=== PATIENT | female | born 1995 | race Caucasian/White ===

== ENCOUNTER 2023-03-14 09:48 | Outpatient (CLI) | payer OTHER, SELFPAY ==
[2023-03-14 11:27] LABS: Cholesterol 230 mg/dL (0-200); HDL Direct 58 mg/dL; Triglycerides 74 mg/dL (<150)
[2023-03-14 11:37] LABS: LDL Cholesterol Direct 144 mg/dL
[2023-03-14 11:41] LABS: Iron 102 ug/dL (37-170)
[2023-03-14 11:50] LABS: Percent Iron Saturation 23 % (20-50)
[2023-03-17 14:22] LABS: DHEA-Sulfate 122 mcg/dL (18-391); Insulin Level Total 4.6 uIU/mL (<=19.6)
[2023-03-18 04:49] LABS: Prolactin 7.4 ng/mL (***)
[2023-03-19 07:30] LABS: Testosterone Free 1.1 pg/mL (0.1-6.4); Testosterone Total 18 ng/dL (2-45)
[2023-03-28 07:43] LABS: Reference Lab Test Result 5.5
== END 2023-03-14 09:49 | disposition home or self-care (01) ==
PROVIDERS: Visit Provider Obstetrics & Gynecology
DX: N93.9 Abnormal uterine and vaginal bleeding, unspecified (principal); Z87.42 Personal history of other diseases of the female genital tract
CPT/HCPCS: 36415; 80061; 82627; 82728; 83036; 83498; 83525; 83540; 83550; 84146; 84402; 84403; 84443

== ENCOUNTER 2024-07-12 15:56 | Outpatient (CLI) | payer OTHER, SELFPAY | END 2024-07-12 15:57 | disposition home or self-care (01) | LOC: ANHLAB 15:58 | PROVIDERS: Visit Provider Obstetrics & Gynecology | DX: O26.851 Spotting complicating pregnancy, first trimester (principal); Z3A.00 Weeks of gestation of pregnancy not specified | CPT/HCPCS: 36415; 84702; 86850; 86900; 86901 ==

== ENCOUNTER 2024-07-14 10:59 | Outpatient (CLI) | payer OTHER, SELFPAY ==
--- NOTE | ~2024-07-14 | US_ITS ---
US OB transvaginal DATE: 07/14/2024 11:29 INDICATION: Vaginal spotting. Evaluate for viability TECHNIQUE: Transvaginal imaging COMPARISON: None FINDINGS: The uterus measures 7.0 cm sagittal, 3.5 cm AP and 3.7 cm transverse dimension. A possible intrauterine gestational sac is identified, but no pole or yolk sac is detected. Mean sac diameter of 0.6 cm would be consistent with 5 weeks 2 days estimated gestational age. Right ovary measures 2.6 x 2.2 x 2.9 cm. The left ovary is not visualized. Small amount of free fluid in the posterior cul-de-sac. IMPRESSION: Possible early intrauterine gestational sac; no pole or yolk sac is detected. Recom mend correlation with serum beta hCG levels and/or follow-up pelvic ultrasound examination. Reviewed, dictated and finalized at [facility]. Reviewed, dictated and finalized at [facility]. IMPRESSION: Possible early intrauterine gestational sac; no pole or yolk sac is detected. Recommend correlation with serum beta hCG levels and/or follow -up pelvic ultrasound examination.
== END 2024-07-14 11:00 | disposition home or self-care (01) ==
LOC: MICIMG 11:00
PROVIDERS: PCP Obstetrics & Gynecology; Visit Provider Obstetrics & Gynecology
DX: O26.851 Spotting complicating pregnancy, first trimester (principal); Z3A.00 Weeks of gestation of pregnancy not specified
CPT/HCPCS: 76817

== ENCOUNTER 2024-07-19 16:31 | Outpatient (CLI) | payer OTHER, SELFPAY ==
[2024-07-19 17:47] LABS: Beta HCG Quantitative 657.51 mIU/ML
== END 2024-07-19 16:32 | disposition home or self-care (01) ==
LOC: ANHLAB 16:32
PROVIDERS: PCP Obstetrics & Gynecology; Visit Provider Obstetrics & Gynecology
DX: N93.9 Abnormal uterine and vaginal bleeding, unspecified (principal)
CPT/HCPCS: 36415; 84702

== ENCOUNTER 2024-07-31 16:35 | Outpatient (CLI) | payer OTHER, SELFPAY ==
[2024-07-31 17:35] LABS: Beta HCG Quantitative 4.84 mIU/ML
== END 2024-07-31 16:36 | disposition home or self-care (01) ==
LOC: ANHLAB 16:37
PROVIDERS: Visit Provider Obstetrics & Gynecology
DX: N94.89 Other specified conditions associated with female genital organs and menstrual cycle (principal)
CPT/HCPCS: 36415; 84702

== ENCOUNTER 2025-01-29 16:28 | Outpatient (CLI) | payer OTHER, SELFPAY ==
[2025-01-29 17:23] LABS: Beta HCG Quantitative < 2.39 mIU/ML
[2025-01-30 05:59] LABS: Progesterone 0.5 ng/mL
[2025-01-31 00:44] LABS: FSH 9.3 mIU/mL; LH 4.4 mIU/mL; Prolactin 9.6 ng/mL
[2025-01-31 01:49] LABS: Sex Hormone Binding Globulin 57 nmol/L (17-124)
[2025-02-02 18:29] LABS: Testosterone Free 2.3 pg/mL (0.1-6.4); Testosterone Total 28 ng/dL (2-45)
== END 2025-01-29 16:29 | disposition home or self-care (01) ==
PROVIDERS: Visit Provider Obstetrics & Gynecology
DX: N93.9 Abnormal uterine and vaginal bleeding, unspecified (principal); Z87.42 Personal history of other diseases of the female genital tract
CPT/HCPCS: 36415; 82670; 83001; 83002; 84144; 84146; 84270; 84402; 84403; 84443; 84702

== ENCOUNTER 2025-02-13 16:43 | Outpatient (CLI) | payer OTHER, SELFPAY ==
[2025-02-14 06:53] LABS: Progesterone 13.2 ng/mL
== END 2025-02-13 16:44 | disposition home or self-care (01) ==
PROVIDERS: Visit Provider Obstetrics & Gynecology
DX: Z87.42 Personal history of other diseases of the female genital tract (principal)
CPT/HCPCS: 36415; 84144

== ENCOUNTER 2025-03-05 16:24 | Outpatient (CLI) | payer OTHER, SELFPAY ==
[2025-03-06 04:08] LABS: Progesterone. 29.1 ng/mL
== END 2025-03-05 16:25 | disposition home or self-care (01) ==
PROVIDERS: Visit Provider Obstetrics & Gynecology
DX: N92.6 Irregular menstruation, unspecified (principal); Z87.42 Personal history of other diseases of the female genital tract
CPT/HCPCS: 36415; 84144; 84702

== ENCOUNTER 2025-04-10 16:32 | Outpatient (CLI) | payer OTHER, SELFPAY ==
--- OUTSIDE RECORDS SUMMARY | 2025-04-10 16:37 | XMS_ITS | Clinical Summary ---
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 Gender Identity Not on file Sexual Orientation Not on file Plan of Treatment Health Maintenance Due Date Last Done Comments Cervical Cancer Screening Pap Smear (Age 21 to 29) Every 3 Years 1995 Cervical Cancer Screening 1995 Annual Physical 1998 Hepatitis C 2013 HPV Vaccines (1 - 3-dose SCDM series) 2022 COVID-19 Vaccine ( season) 2024 10/16/2020, 09/18/2020 DTaP, Tdap and Td Vaccines (4 - Td or Tdap) 02/26/2034 02/27/2024, 02/27/2010, 03/27/2001, Additional history exists Hepatitis B Vaccines Completed 1995, 1995, 1995 Meningococcal Vaccine Aged Out 02/27/2010 No grant carina eligible based on patient's age to complete this topic Meningococcal B Vaccine Aged Out No l onger eligible based on patient's age to complete this topic Pneumococcal Vaccine: Pediatrics (0 to 5 Years) and At-Risk Patients (6 to 49 Years) Aged Out No longer eligible based on patient's age to complete this topic RSV Immunizations Under 20 Months Aged Out No longer eligible based on patient's age to complete this topic Insurance [employer]ET[employer] [facility] Care Teams Violin Repairer Relationship Specialty Start Date End Date Noemi Strauss APNP [address] [place] [address] PCP - General NURSE PRACTITIONER 05/11/24
[2025-04-10 17:27] LABS: Hematocrit 36.6 % (37.0-47.0); Hemoglobin 12.0 g/dL (12.0-15.0); Immature Granulocyte Percent A 0.3 % (0-0.5); Lymphocytes Absolute Auto 2.15 K/mm3 (0.9-3.2); Mean Corpuscular HGB Conc 32.8 g/dl (32-36); Mean Corpuscular Hemoglobin 29.5 pg (26-34); Mean Corpuscular Volume 89.9 fl (80-100); Nucleated Red Blood Cells Absolute Auto 0.000 K/mm3 (0.0-0.012); Nucleated Red Blood Cells Perc 0.0 % (0.0-0.2); Platelet Count Result 254 k/mm3 (150-375); Red Blood Count 4.07 M/mm3 (4.2-5.4); White Blood Count 8.6 K/mm3 (4.5-10.0)
[2025-04-10 18:15] LABS: Syphilis IgG/IgM Antibody Non-Reactive (Nonreactive)
[2025-04-10 18:18] LABS: Hepatitis B Surface Antigen Negative (Negative)
[2025-04-10 18:26] LABS: HIV 1/2 Ab P24 Ag Result Negative (Negative)
[2025-04-10 18:33] LABS: Beta HCG Quantitative 92741.00 mIU/ML
[2025-04-12 08:08] LABS: Cytomegalovirus (CMV) Ab, IgG <0.60 U/mL (0.00-0.59)
[2025-04-12 14:08] LABS: Varicella-Zoster Ab, IgG Reactive (Non Reactive); Varicella-Zoster Ab, IgM <0.91 index (0.00-0.90)
[2025-04-15 14:08] LABS: Parvovirus B19, IgG 0.1 index (0.0-0.8); Parvovirus B19, IgM 0.2 index (0.0-0.8)
== END 2025-04-10 16:33 | disposition home or self-care (01) ==
PROVIDERS: Visit Provider Obstetrics & Gynecology
DX: Z34.90 Encounter for supervision of normal pregnancy, unspecified, unspecified trimester (principal); Z3A.00 Weeks of gestation of pregnancy not specified
CPT/HCPCS: 36415; 84702; 85025; 86593; 86644; 86703; 86747; 86762; 86787; 86850; 86900; 86901; 87086; 87340; G0432

== ENCOUNTER 2025-04-16 16:33 | Outpatient (CLI) | payer OTHER, SELFPAY ==
--- OUTSIDE RECORDS SUMMARY | 2025-04-16 16:36 | XMS_ITS | Clinical Summary ---
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
== END 2025-04-16 16:34 | disposition home or self-care (01) ==
LOC: ANHLAB 16:34
PROVIDERS: Visit Provider Obstetrics & Gynecology
DX: Z34.90 Encounter for supervision of normal pregnancy, unspecified, unspecified trimester (principal); Z3A.00 Weeks of gestation of pregnancy not specified
CPT/HCPCS: 87086

== ENCOUNTER 2025-08-02 14:37 | Outpatient (CLI) | payer OTHER, SELFPAY ==
[2025-08-02 16:15] LABS: Hematocrit 34.2 % (37.0-47.0); Hemoglobin 10.9 g/dL (12.0-15.0); Immature Granulocyte Percent A 0.9 % (0-0.5); Lymphocytes Absolute Auto 1.77 K/mm3 (0.9-3.2); Mean Corpuscular HGB Conc 31.9 g/dl (32-36); Mean Corpuscular Hemoglobin 29.5 pg (26-34); Mean Corpuscular Volume 92.7 fl (80-100); Nucleated Red Blood Cells Absolute Auto 0.000 K/mm3 (0.0-0.012); Nucleated Red Blood Cells Perc 0.0 % (0.0-0.2); Platelet Count Result 250 k/mm3 (150-375); Red Blood Count 3.69 M/mm3 (4.2-5.4); White Blood Count 11.7 K/mm3 (4.5-10.0)
[2025-08-02 16:28] LABS: Glucose 1 Hour PP 50gm Dose 116 mg/dL
[2025-08-02 16:58] LABS: Syphilis IgG/IgM Antibody Non-Reactive (Nonreactive)
[2025-08-02 17:10] LABS: HIV 1/2 Ab P24 Ag Result Negative (Negative)
== END 2025-08-02 14:38 | disposition home or self-care (01) ==
LOC: ANHLAB 14:39
PROVIDERS: Visit Provider Obstetrics & Gynecology
DX: Z34.90 Encounter for supervision of normal pregnancy, unspecified, unspecified trimester (principal); Z3A.00 Weeks of gestation of pregnancy not specified
CPT/HCPCS: 36415; 82947; 85025; 86593; 86703; G0432

== ENCOUNTER 2025-08-22 16:45 | Outpatient (CLI) | payer OTHER, SELFPAY ==
[2025-08-24 07:09] LABS: Cytomegalovirus (CMV) Ab, IgG <0.60 U/mL (0.00-0.59); Cytomegalovirus (CMV) Ab, IgM <30.0 AU/mL (0.0-29.9)
== END 2025-08-22 16:46 | disposition home or self-care (01) ==
LOC: ANHLAB 16:49
PROVIDERS: Visit Provider Obstetrics & Gynecology
DX: R05.9 Cough, unspecified (principal)
CPT/HCPCS: 86644; 86645